=== PATIENT | female | born 1970 | race Caucasian/White ===

== ENCOUNTER 2018-08-12 21:57 | Emergency (ER) | payer BC ==
--- NOTE | 2018-08-12 23:25 | EDM.PDOC ---
<RameshAnaay trevizo - Last Filed: 08/12/18 23:18> ED HPI GENERAL MEDICAL PROBLEM - General Chief Complaint: Diabetic Complaint Stated Complaint: MEDICAL Time Seen by Provider: 08/12/18 22:35 - History of Present Illness INITIAL COMMENTS - FREE TEXT/NARRATIVE: Rocio Clark is a 47 year old female who presents to the E.D. with concerns of uncontrolled diabetes, post op knee surgery on July 23. Since her surgery she notes increased urinary incontinence and feelings of hypoglycemia. She notes that she has not had her A1c checked in a couple of months and has not followed with her PCP in that time as well. She recalls her diabetes being well controlled in the past. Since surgery she has been inactive, except when she attends PT. Today she experienced dizziness and vertigo-like sensations, 12 hours ago. She states having a past history of menieres in which she takes meclizine. Then 6 hours ago she had an episode of shakiness and ate 2 crackers, peanut butter and juice. 10 minutes last the shakiness returned and she ate more peanut butter and juice. After that she experienced urinary incontinence. She also has been having abdominal pain since her surgery. She denied being constipated or having diarrhea. She did mention constipation following surgery and after being on the pain medicine but has not had issues since. She denied infection at the surgical site, fevers, urgency and dysuria. denies pain Pain Score (Numeric/FACES): 0 - Related Data Allergies Allergy/AdvReac Type Severity Reaction Status Date / Time strawberry [[place]] Allergy Hives Verified 08/12/18 22:17 kit diana Allergy Swelling Uncoded 08/12/18 22:17 Home Meds: Home Meds Albuterol [Ventolin HFA] 2 puff INH ASDIRECTED PRN 06/12/18 [History] Diclofenac Sodium 1 dose TOP ASDIRECTED 06/12/18 [History] Lisdexamfetamine [Vyvanse] 20 mg PO DAILY 06/12/18 [History] Lisinopril 40 mg PO DAILY 06/12/18 [History] Simvastatin 80 mg PO BEDTIME 06/12/18 [History] hydroCHLOROthiazide [Hydrochlorothiazide] 12.5 mg PO DAILY 06/12/18 [History] metFORMIN HCl [Metformin HCl ER] 750 mg PO BEDTIME 06/12/18 [History] traZODone HCl [Trazodone HCl] 50 mg PO BEDTIME 06/12/18 [History] Celecoxib 200 mg PO DAILY 08/12/18 [History] Hydrocodone/Acetaminophen [[place] 10-325 Tablet] 1 tab PO ASDIRECTED PRN [History] Meclizine [Antivert] 25 mg PO DAILY 08/12/18 [History] Pantoprazole 20 mg PO DAILY 08/12/18 [History] Sennosides [Senna] 8.6 mg PO BID 08/12/18 [History] Venlafaxine HCl [Venlafaxine ER] 150 mg PO DAILY 08/12/18 [History] Past Medical History HEENT History: Reports: Impaired Vision, Other (See Below) Other HEENT History: [place] Cardiovascular History: Reports: High Cholesterol, Hypertension Respiratory History: Reports: Asthma Gastrointestinal History: Reports: Helicobacter Pylori, Other (See Below) Other Gastrointestinal History: acid reflux Genitourinary History: Reports: Urinary Incontinence Musculoskeletal History: Reports: Arthritis, Fracture Psychiatric History: Reports: Anxiety, Depression, PTSD, Suicide Attempt Endocrine/Metabolic History: Reports: Diabetes, Type II, Obesity/BMI 30+ - Infectious Disease History Infectious Disease History: Reports: Chicken Pox - Past Surgical History Musculoskeletal Surgical History: Reports: Knee Replacement, Other (See Below) Other Musculoskeletal Surgeries/Procedures:: humerous fx repair, right elbow fracture repair. Social & Family History - Tobacco Use Smoking Status *Q: Never Smoker - Caffeine Use Caffeine Use: Reports: Soda - Recreational Drug Use Recreational Drug Use: No ED ROS GENERAL - Review of Systems Constitutional: Denies: Fever, Chills, Malaise HEENT: Reports: Vertigo. Denies: Ear Pain, Eye Discharge GI/Abdominal: Reports: Abdominal Pain. Denies: Constipation, Diarrhea : Reports: Incontinence. Denies: Dysuria, Flank Pain, Frequency, Hematuria Psychiatric: Reports: Anxiety, Other (She notes an increased stress level since her surgery ) ED EXAM GENERAL NO PERIP PULSE - Physical Exam Exam Limited By: No Limitations General Appearance: Alert, WD/WN, No Apparent Distress, Anxious Ears: Normal TMs, Other (cerumen located in right external ear canal) Throat/Mouth: Normal Inspection, Normal Lips, Normal Teeth, Normal Voice Head: Atraumatic, Normocephalic Neck: Supple Respiratory/Chest: No Respiratory Distress, No Accessory Muscle Use GI/Abdominal: Normal Bowel Sounds, Soft, Tender, Other (Tender upon palpation of middle, lower quadrant). No: Rebound, Hernia, Mass Neurological: Alert, Oriented Skin Exam: Warm, Normal Color, No Rash Course - Vital Signs Last Recorded V/S: Last Vital Signs Temp 36.6 C 08/12/18 22:25 Pulse 95 08/12/18 22:25 Resp 16 08/12/18 22:25 BP 149/78 H 08/12/18 22:25 Pulse Ox 96 08/12/18 22:25 - Orders/Labs/Meds Labs: Laboratory Tests 08/12/18 08/12/18 08/12/18 Range/Units 23:15 23:15 23:17 WBC 11.6 H (4.5-11.0) K/uL RBC 4.10 (3.30-5.50) M/uL Hgb 11.8 L D (12.0-15.0) g/dL Hct 37.2 (36.0-48.0) % MCV 91 (80-98) fL MCH 29 (27-31) pg MCHC 32 (32-36) % Plt Count 437 H (150-400) K/uL Neut % (Auto) 56 (36-66) % Lymph % (Auto) 34 (24-44) % [place] % (Auto) 7 H (2-6) % Eos % (Auto) 3 (2-4) % Baso % (Auto) 0 (0-1) % Sodium 140 (140-148) mmol/L Potassium 3.9 (3.6-5.2) mmol/L Chloride 102 (100-108) mmol/L Carbon Dioxide 25 (21-32) mmol/L Anion Gap 12.7 (5.0-14.0) mmol/L BUN 20 H (7-18) mg/dL Creatinine 1.0 (0.6-1.0) mg/dL Est Cr Clr Drug Dosing 65.11 mL/min Estimated GFR (MDRD) 59 L (>60) Glucose 159 H (74-106) mg/dL Calcium 9.7 (8.5-10.1) mg/dL Total Bilirubin 0.2 (0.2-1.0) mg/dL AST 12 L (15-37) U/L ALT 18 (12-78) U/L Alkaline Phosphatase 108 (46-116) U/L Total Protein 7.4 (6.4-8.2) g/dL Albumin 3.3 L (3.4-5.0) g/dL Globulin 4.1 H (2.3-3.5) g/dL Albumin/Globulin Ratio 0.8 L (1.2-2.2) Urine Color Yellow Urine Appearance Clear Urine pH 5.0 (4.5-8.0) Ur Specific [place] 1.010 (1.008-1.030) Urine Protein Negative (NEGATIVE) mg/dL Urine Glucose (UA) Normal (NEGATIVE) mg/dL Urine Ketones Negative (NEGATIVE) mg/dL Urine Occult Blood Negative (NEGATIVE) Urine Nitrite Negative (NEGATIVE) Urine Bilirubin Negative (NEGATIVE) Urine Urobilinogen Normal (NORMAL) mg/dL Ur Leukocyte Esterase Negative (NEGATIVE) Urine RBC 0-5 (0-5) Urine WBC 0-5 (0-5) Ur Epithelial Cells Few Amorphous Sediment Not seen Urine Bacteria Rare Urine Mucus Not seen Departure - Departure Disposition: Home, Self-Care 01 Clinical Impression: Meniere's disease, Depression, Constipation - Discharge Information Instructions: Constipation, Adult, [id number], Dizziness, [id number] Referrals: Molly Holt PA [Primary Care Provider] - Forms: ED Department Discharge Care Plan Goals: increase fiber in the diet. Eat several prunes daily use bran cereal, use GUMMY Fibers 3-4 daily to regulate the stools. continue the Senna. Followup with Patricia Holt. continue with the antivert for the dizziness. MultiVit with iron for the hemoglobin that is low <Nithya Strauss - Last Filed: 08/14/18 07:17> ED ROS GENERAL - Review of Systems Review Of Systems: See Below ED EXAM GENERAL NO PERIP PULSE - Physical Exam Exam: See Below Course - Re-Assessments/Exams Free Text/Narrative Re-Assessment/Exam: 08/12/18 23:54 pt had a bs of 159. Her chems otherwise looked normal. Her urine is clear. 08/13/18 00:15 pt had a borderline hg. She has a history of depression and now she is feeling very confined. She is going to therapy on a regular basis. Departure - Departure Time of Disposition: 00:17 Condition: Fair
== END 2018-08-13 00:28 | disposition home or self-care (01) ==
LOC: JP.ED 21:57
DX: K59.00 Constipation, unspecified (principal); H81.01 Meniere's disease, right ear; F32.9 Major depressive disorder, single episode, unspecified
CPT/HCPCS: 36415; 80053; 81001; 85025; 99284

== ENCOUNTER 2019-11-24 15:45 | Emergency (ER) | payer BC ==
--- NOTE | 2019-11-24 17:19 | EDM.PDOCBH ---
<Juan Pablo Medel - Last Filed: 11/24/19 17:13> ED HPI GENERAL MEDICAL PROBLEM - General Chief Complaint: Behavioral/Psych Stated Complaint: MENTAL HEALTH EVAL Time Seen by Provider: 11/24/19 17:05 Source of Information: Reports: Patient, Family, Provider History Limitations: Reports: No Limitations - History of Present Illness INITIAL COMMENTS - FREE TEXT/NARRATIVE: 49-year-old female with severe longstanding depression, previous suicidal attempt with drug overdose, has had an exacerbation of symptoms over the past few weeks and was sent in by her provider for an evaluation. She wants help, she is very tearful, feels helpless, hopeless, and yesterday was thinking of crashing her car and killing herself. A [id number] has had to move into her house for the last 2 months and is been an extremely stressful situation. Her said she pushes everyone away from her because she does not want to be close. She does not use drugs or drink alcohol. Her is afraid to take her home because he has never seen her this bad, and the patient herself admits she is dangerous to be discharged Onset: Unknown/Unsure Duration: Chronic Associated Symptoms: Reports: No Other Symptoms Bilateral Knee Pain Score (Numeric/FACES): 6 - Related Data Allergies Allergy/AdvReac Type Severity Reaction Status Date / Time diphenhydramine Allergy Itching Verified 11/24/19 19:38 [From Benadryl] strawberry [[place]] Allergy Hives Verified 11/24/19 16:36 kit diana Allergy Swelling Uncoded 11/24/19 16:36 Home Meds: Home Meds Diclofenac Sodium 1 dose TOP ASDIRECTED 06/12/18 [History] Lisdexamfetamine [Vyvanse] 20 mg PO DAILY 06/12/18 [History] Lisinopril 40 mg PO DAILY 06/12/18 [History] Simvastatin 80 mg PO BEDTIME 06/12/18 [History] hydroCHLOROthiazide [Hydrochlorothiazide] 12.5 mg PO DAILY 06/12/18 [History] metFORMIN HCl [Metformin HCl ER] 750 mg PO BEDTIME 06/12/18 [History] traZODone HCl [Trazodone HCl] 50 mg PO BEDTIME 06/12/18 [History] Meclizine [Antivert] 25 mg PO DAILY 08/12/18 [History] Sennosides [Senna] 8.6 mg PO BID 08/12/18 [History] Venlafaxine HCl [Venlafaxine ER] 150 mg PO DAILY 08/12/18 [History] Venlafaxine [Effexor] 150 mg PO DAILY 11/24/19 [History] Past Medical History HEENT History: Reports: Impaired Vision, Other (See Below) Other HEENT History: [place] Cardiovascular History: Reports: High Cholesterol, Hypertension Respiratory History: Reports: Asthma Gastrointestinal History: Reports: Helicobacter Pylori, Other (See Below) Other Gastrointestinal History: acid reflux Genitourinary History: Reports: Urinary Incontinence Musculoskeletal History: Reports: Arthritis, Fracture Psychiatric History: Reports: Anxiety, Depression, PTSD, Suicide Attempt Endocrine/Metabolic History: Reports: Diabetes, Type II, Obesity/BMI 30+ - Infectious Disease History Infectious Disease History: Reports: Chicken Pox - Past Surgical History Musculoskeletal Surgical History: Reports: Knee Replacement, Other (See Below) Other Musculoskeletal Surgeries/Procedures:: humerous fx repair, right elbow fracture repair. Social & Family History - Tobacco Use Smoking Status *Q: Never Smoker - Caffeine Use Caffeine Use: Reports: Soda - Recreational Drug Use Recreational Drug Use: No ED ROS GENERAL - Review of Systems Review Of Systems: See Below Constitutional: Reports: Malaise. Denies: Fever, Chills HEENT: Reports: No Symptoms Respiratory: Denies: Shortness of Breath Cardiovascular: Denies: Chest Pain GI/Abdominal: Denies: Constipation, Diarrhea, Nausea, Vomiting : Reports: No Symptoms Skin: Reports: No Symptoms Neurological: Denies: Headache Psychiatric: Reports: Depression, Other (Bipolar) ED EXAM, BEHAVIORAL HEALTH - Physical Exam Exam: See Below Exam Limited By: No Limitations General Appearance: Alert, No Apparent Distress Eye Exam: Bilateral Eye: Normal Inspection Head: Atraumatic Respiratory/Chest: No Respiratory Distress, Lungs Clear Cardiovascular: No: Regular Rate, Rhythm GI/Abdominal: Soft, Non-Tender Extremities: Other (Well-healed surgical scars over both knees and the right elbow) Neurological: Alert, No Motor/Sensory Deficits, Oriented x 3 Psychiatric: Depressed Mood, Flat Affect, Tearful, Poor Eye Contact Skin Exam: Warm, Dry COURSE, BEHAVIORAL HEALTH COMP - Course Vital Signs: Last Vital Signs Temp 97.7 F 11/24/19 16:40 Pulse 89 06/09/20 19:35 Resp 16 11/24/19 19:35 BP 155/70 H 11/24/19 19:35 Pulse Ox 96 11/24/19 19:35 Orders, Labs, Meds: Active Orders 24 hr Category Date Time Status CULTURE URINE [RM] Stat Lab 11/24/19 18:30 Received Laboratory Tests 11/24/19 11/24/19 11/24/19 Range/Units 17:24 17:24 17:27 WBC 13.3 H (4.5-11.0) K/uL RBC 4.52 (3.30-5.50) M/uL Hgb 12.9 (12.0-15.0) g/dL Hct 40.5 (36.0-48.0) % MCV 90 (80-98) fL MCH 29 (27-31) pg MCHC 32 (32-36) % Plt Count 349 (150-400) K/uL Neut % (Auto) 71 H (36-66) % Lymph % (Auto) 21 L (24-44) % [place] % (Auto) 7 H (2-6) % Eos % (Auto) 1 L (2-4) % Baso % (Auto) 0 (0-1) % Sodium 141 (140-148) mmol/L Potassium 3.6 (3.6-5.2) mmol/L Chloride 103 (100-108) mmol/L Carbon Dioxide 28 (21-32) mmol/L Anion Gap 10.3 (5.0-14.0) mmol/L BUN 16 (7-18) mg/dL Creatinine 1.0 (0.6-1.0) mg/dL Est Cr Clr Drug Dosing 66.18 mL/min Estimated GFR (MDRD) 59 L (>60) Glucose 113 H (74-106) mg/dL Calcium 9.1 (8.5-10.1) mg/dL Total Bilirubin 0.5 D (0.2-1.0) mg/dL AST 19 (15-37) U/L ALT 25 (12-78) U/L Alkaline Phosphatase 84 (46-116) U/L Total Protein 7.9 (6.4-8.2) g/dL Albumin 3.8 (3.4-5.0) g/dL Globulin 4.1 H (2.3-3.5) g/dL Albumin/Globulin Ratio 0.9 L (1.2-2.2) Urine Color Yellow (YELLOW) Urine Appearance Slightly cloudy A (CLEAR) Urine pH 5.5 (5.0-8.0) Ur Specific [place] >= 1.030 (1.008-1.030) Urine Protein 100 H (NEGATIVE) mg/dL Urine Glucose (UA) Negative (NEGATIVE) mg/dL Urine Ketones Negative (NEGATIVE) mg/dL Urine Occult Blood Trace-intact H (NEGATIVE) Urine Nitrite Positive H (NEGATIVE) Urine Bilirubin Negative (NEGATIVE) Urine Urobilinogen 0.2 (0.2-1.0) EU/dL Ur Leukocyte Esterase Trace H (NEGATIVE) Urine RBC Not seen (0-5) Urine WBC 40-50 H (0-5) Ur Epithelial Cells Many Urine Bacteria Many Urine Opiates Screen (NEGATIVE) Ur Oxycodone Screen (NEGATIVE) Urine Methadone Screen (NEGATIVE) Ur Propoxyphene Screen (NEGATIVE) Ur Barbiturates Screen (NEGATIVE) Ur Tricyclics Screen (NEGATIVE) Ur Phencyclidine Scrn (NEGATIVE) Ur Amphetamine Screen (NEGATIVE) U Methamphetamines Scrn (NEGATIVE) Urine MDMA Screen (NEGATIVE) U Benzodiazepines Scrn (NEGATIVE) U Cocaine Metab Screen (NEGATIVE) U Marijuana (THC) Screen (NEGATIVE) Ethyl Alcohol mg/dL 11/24/19 11/24/19 Range/Units 17:27 18:27 WBC (4.5-11.0) K/uL RBC (3.30-5.50) M/uL Hgb (12.0-15.0) g/dL Hct (36.0-48.0) % MCV (80-98) fL MCH (27-31) pg MCHC (32-36) % Plt Count (150-400) K/uL Neut % (Auto) (36-66) % Lymph % (Auto) (24-44) % [place] % (Auto) (2-6) % Eos % (Auto) (2-4) % Baso % (Auto) (0-1) % Sodium (140-148) mmol/L Potassium (3.6-5.2) mmol/L Chloride (100-108) mmol/L Carbon Dioxide (21-32) mmol/L Anion Gap (5.0-14.0) mmol/L BUN (7-18) mg/dL Creatinine (0.6-1.0) mg/dL Est Cr Clr Drug Dosing mL/min Estimated GFR (MDRD) (>60) Glucose (74-106) mg/dL Calcium (8.5-10.1) mg/dL Total Bilirubin (0.2-1.0) mg/dL AST (15-37) U/L ALT (12-78) U/L Alkaline Phosphatase (46-116) U/L Total Protein (6.4-8.2) g/dL Albumin (3.4-5.0) g/dL Globulin (2.3-3.5) g/dL Albumin/Globulin Ratio (1.2-2.2) Urine Color (YELLOW) Urine Appearance (CLEAR) Urine pH (5.0-8.0) Ur Specific [place] (1.008-1.030) Urine Protein (NEGATIVE) mg/dL Urine Glucose (UA) (NEGATIVE) mg/dL Urine Ketones (NEGATIVE) mg/dL Urine Occult Blood (NEGATIVE) Urine Nitrite (NEGATIVE) Urine Bilirubin (NEGATIVE) Urine Urobilinogen (0.2-1.0) EU/dL Ur Leukocyte Esterase (NEGATIVE) Urine RBC (0-5) Urine WBC (0-5) Ur Epithelial Cells Urine Bacteria Urine Opiates Screen Negative (NEGATIVE) Ur Oxycodone Screen Negative (NEGATIVE) Urine Methadone Screen Negative (NEGATIVE) Ur Propoxyphene Screen Negative (NEGATIVE) Ur Barbiturates Screen Negative (NEGATIVE) Ur Tricyclics Screen Negative (NEGATIVE) Ur Phencyclidine Scrn Negative (NEGATIVE) Ur Amphetamine Screen Negative (NEGATIVE) U Methamphetamines Scrn Negative (NEGATIVE) Urine MDMA Screen Negative (NEGATIVE) U Benzodiazepines Scrn Negative (NEGATIVE) U Cocaine Metab Screen Negative (NEGATIVE) U Marijuana (THC) Screen Negative (NEGATIVE) Ethyl Alcohol < 3 mg/dL Medications Discontinued Medications Generic Name Dose Route Start Last Admin Trade Name Freq PRN Reason Stop Dose Admin Diphenhydramine HCl 50 mg 11/24/19 19:14 11/24/19 19:37 Benadryl IM 11/24/19 19:15 Not Given ONETIME ONE Haloperidol Lactate 5 mg 11/24/19 19:14 11/24/19 19:29 Haldol IM 11/24/19 19:15 5 mg ONETIME ONE Administration Lorazepam 2 mg 11/24/19 19:14 11/24/19 19:28 Ativan IM 11/24/19 19:15 2 mg ONETIME ONE Administration Nitrofurantoin Macrocrystals 100 mg 11/24/19 18:54 11/24/19 19:32 Macrobid PO 11/24/19 18:55 100 mg ONETIME ONE Administration Re-Assessment/Re-Exam: Patient clearly needs inpatient stabilization and is a high risk for suicide. CBC CMP UA and urine drug screen were obtained. She is not sexually active, and does not do street drugs or drink alcohol. Departure - Departure Disposition: DC/Tfer to Psych Hosp/Unit 65 Clinical Impression: Suicidal ideation - Discharge Information Referrals: Molly Holt PA [Primary Care Provider] - Forms: ED Department Discharge Sepsis Event Note (ED) - Evaluation Sepsis Screening Result: No Definite Risk - Focused Exam Vital Signs: Vital Signs Temp Pulse Resp BP Pulse Ox 11/24/19 19:35 89 16 155/70 H 96 11/24/19 16:40 97.7 F 101 H 16 195/99 H 96 11/24/19 16:26 97.7 F 101 H 16 195/99 H 96 <OfficerGenaro - Last Filed: 11/24/19 20:29> COURSE, BEHAVIORAL HEALTH COMP - Course Re-Assessment/Re-Exam: Became very tearful with outbursts demanding to go home however she admitted earlier in the day that she does want to harm herself did have a plan, asked for something to relax herself [facility] has asked for 72-hour hold placement prior to transport Departure - Departure Time of Disposition: 20:29 Condition: Fair - Assessment/Plan Plan: Assessment Acuity = acute Site and laterality = suicidal ideation Etiology = unknown Manifestations = distraught anxiety Location of injury = Home Lab values = WBC elevated 13.3 consistent leukocytosis urinalysis reveals positive nitrates, 40-50 WBCs and EtOH of negative urine drug screen is negative urine culture is pending Plan Did have acceptance gain from [facility] she will be transferred via EMS services This note was dictated using [employer] voice recognition software please call with any questions on syntax or grammar.
[2019-11-24] MEDS ORDERED: Nitrofurantoin Monohydrate/Macrocrystalline 100 MG Cap PO ONE (18:54)
[2019-11-24] MEDS ORDERED: LORazepam 2 MG/ML SDV IM ONE (19:14)
[2019-11-24] MEDS ORDERED: diphenhydrAMINE 50 MG/ML SDV IM ONE (19:14)
[2019-11-24] MEDS ORDERED: Haloperidol Lactate 5 MG/ML SDV IM ONE (19:14)
== END 2019-11-24 21:06 ==
LOC: JP.ED 15:45
DX: R45.851 Suicidal ideations (principal); E78.00 Pure hypercholesterolemia, unspecified; I10 Essential (primary) hypertension; J45.909 Unspecified asthma, uncomplicated; F41.9 Anxiety disorder, unspecified; F32.9 Major depressive disorder, single episode, unspecified; E11.9 Type 2 diabetes mellitus without complications; E66.9 Obesity, unspecified; Z68.41 Body mass index [BMI] 40.0-44.9, adult; Z79.84 Long term (current) use of oral hypoglycemic drugs; Z79.899 Other long term (current) drug therapy; Z88.8 Allergy status to other drugs, medicaments and biological substances; Z91.018 Allergy to other foods
CPT/HCPCS: 36415; 80053; 80305; 80307; 81001; 85025; 87086; 87088; 87186; 96372; 99285; A9270; J1630; J2060

== ENCOUNTER 2022-04-19 09:48 | Emergency (ER) | payer BC ==
[2022-04-19] MEDS ORDERED: Ketorolac 30 MG/ML SDV IM ONE (10:55)
== END 2022-04-19 11:21 | disposition home or self-care (01) ==
LOC: JP.ED 09:48
DX: S20.229A Contusion of unspecified back wall of thorax, initial encounter (principal); R55 Syncope and collapse; E78.00 Pure hypercholesterolemia, unspecified; I10 Essential (primary) hypertension; E11.9 Type 2 diabetes mellitus without complications; E66.9 Obesity, unspecified; Z68.41 Body mass index [BMI] 40.0-44.9, adult; Z88.8 Allergy status to other drugs, medicaments and biological substances; Z91.018 Allergy to other foods; Z79.899 Other long term (current) drug therapy; Z79.84 Long term (current) use of oral hypoglycemic drugs; X50.0XXA Overexertion from strenuous movement or load, initial encounter
CPT/HCPCS: 96372; 99283; J1885

== ENCOUNTER 2023-12-18 10:05 | Emergency (ER) | payer BC ==
[2023-12-18 11:06] LABS: BASOPHILS ABSOLUTE AUTO 0.04 K/uL (0.00-0.10); BASOPHILS PERCENT AUTO 0.5 % (0.1-1.3); EOSINOPHILS ABSOLUTE AUTO 0.27 K/uL (0.00-0.40); EOSINOPHILS PERCENT AUTO 3.3 % (0.0-5.4); HEMATOCRIT 37.4 % (34.3-46.0); HEMOGLOBIN 12.7 g/dL (11.2-15.5); IMMATURE GRAN PERCENT AUTO 0.2 % (0.0-0.7); LYMPHOCYTES ABSOLUTE AUTO 2.34 K/uL (0.8-3.3); LYMPHOCYTES PERCENT AUTO 28.3 % (11.4-47.7); MEAN CORPUSCULAR HEMOGLOBIN 28.7 pg (31.6-35.5); MEAN CORPUSCULAR VOLUME 84.6 fL (81.4-99.0); MONOCYTES ABSOLUTE AUTO 0.66 K/uL (0.20-0.90); NEUTROPHILS ABSOLUTE AUTO 4.94 K/uL (1.0-7.6); NEUTROPHILS PERCENT AUTO 59.7 % (40.0-78.1); PLATELET COUNT,PLT 310 K/uL (130-375); RED BLOOD CELL COUNT 4.42 M/uL (3.77-5.24); WHITE BLOOD CELL COUNT,WBC 8.3 K/uL (3.2-11.0)
[2023-12-18 11:13] LABS: IMMATURE GRAN ABSOLUTE AUTO 0.02 K/uL (0.00-0.23)
[2023-12-18 11:22] LABS: INR 1.1; PROTHROMBIN TIME 11.6 sec (9.2-10.6); PTT,PARTIAL THROMBOPLSTIN TIME 26.4 sec (21.8-27.3)
[2023-12-18 11:25] LABS: ANION GAP 14.7 mmol/L (5.0-14.0); CALCIUM 9.4 mg/dL (8.5-10.1); CREATININE 0.9 mg/dL (0.6-1.0); EST CRCL DRUG DOSING (CG) 67.67 mL/min; POTASSIUM,K 3.7 mmol/L (3.6-5.2)
[2023-12-18] MEDS: Ketorolac 30 MG/ML SDV IVPUSH ONE (11:53)
[2023-12-18] MEDS: Sodium Chloride 0.9% 1,000 ML IV SCH (11:55)
[2023-12-18] MEDS: Promethazine 12.5 MG in Sodium Chloride 0.9% 50 ML IV ONE (12:29)
[2023-12-18 12:44] LABS: APPEARANCE,URINE CLEAR (CLEAR); BILIRUBIN,URINE NEGATIVE (NEGATIVE); COLOR,URINE YELLOW (YELLOW); GLUCOSE,URINE NEGATIVE (NEGATIVE); KETONES,URINE NEGATIVE (NEGATIVE); LEUKOCYTE ESTERASE,URINE NEGATIVE (NEGATIVE); NITRITE,URINE NEGATIVE (NEGATIVE); OCCULT BLOOD,URINE NEGATIVE (NEGATIVE); PROTEIN,URINE NEGATIVE (NEGATIVE); UROBILINOGEN,URINE 0.2 EU/dL (0.2-1.0)
[2023-12-18 12:50] LABS: AMORPHOUS SEDIMENT,URINE FEW; BACTERIA,URINE MODERATE; EPITHELIAL CELLS,URINE MODERATE; MUCUS,URINE NOT SEEN; RBC,URINE NOT SEEN (0-5); WBC,URINE 0-5 (0-5)
== END 2023-12-18 14:17 | disposition home or self-care (01) ==
LOC: JP.ED 10:05
DX: G43.119 Migraine with aura, intractable, without status migrainosus (principal); I10 Essential (primary) hypertension; E78.00 Pure hypercholesterolemia, unspecified; E11.9 Type 2 diabetes mellitus without complications; E66.9 Obesity, unspecified; Z79.899 Other long term (current) drug therapy; Z91.018 Allergy to other foods; Z88.8 Allergy status to other drugs, medicaments and biological substances; Z68.42 Body mass index [BMI] 45.0-49.9, adult
CPT/HCPCS: 36415; 70450; 80048; 81001; 81025; 84484; 85025; 85610; 85730; 93005; 96361; 96365; 96375; 99284; J1885; J2550; J3490; J7030; 82947

== ENCOUNTER 2024-01-24 06:27 | Day surgery (SDC) | payer BC ==
[2024-01-24] MEDS ORDERED: Lidocaine 1% 2 ML ONE (07:23)
[2024-01-24] MEDS ORDERED: fentaNYL 250 MCG/5 ML SDV ONE ×2 (07:32→08:31)
[2024-01-24] MEDS ORDERED: Glycopyrrolate 0.2 MG/ML 5 ML MDV ONE (07:34)
[2024-01-24] MEDS ORDERED: Ondansetron 4 MG/2 ML SDV ONE (07:34)
[2024-01-24] MEDS ORDERED: Neostigmine Methylsulfate 10 MG/10 ML MDV ONE (07:34)
[2024-01-24] MEDS ORDERED: Propofol 200 MG/20 ML SDV ONE (07:34)
[2024-01-24] MEDS ORDERED: Rocuronium 50 MG/5 ML Vial ONE (07:34)
[2024-01-24] MEDS ORDERED: Scopalamine 1mg/3day Transdermal Patch ONE (07:34)
[2024-01-24] MEDS ORDERED: Dexamethasone 4 MG/ML SDV ONE (07:34)
[2024-01-24] MEDS ORDERED: Succinylcholine 200 MG/10 ML MDV ONE (07:34)
[2024-01-24] MEDS: Sodium Chloride 0.9% 1,000 ML IV SCH (07:41)
[2024-01-24] MEDS: Indocyanine Green 25 MG SDV IV ONE (07:42)
[2024-01-24] MEDS: ceFAZolin 2 GM in Premix Bag 1 BAG IV ONE (07:45)
[2024-01-24] MEDS: metroNIDAZOLE/Normal Saline 500 MG in Premix Bag 1 BAG IV ONE (08:00)
[2024-01-24] MEDS: Bupivacaine 0.5% 50 ML MDV ONE (08:50)
[2024-01-24] MEDS: Lidocaine 1% with EPINEPHrine 1:100,000 50 ML MDV ONE (08:50)
[2024-01-24] MEDS: hydrOXYzine HCL 100 MG/2 ML SDV IM ONE (10:19)
[2024-01-24] MEDS: fentaNYL 50 MCG/ML SDV IVPUSH ONE ×2 (10:27→11:33)
[2024-01-24] MEDS ORDERED: Naloxone 0.4 MG/ML SDV IVPUSH PRN (11:20)
[2024-01-24] MEDS: Albuterol/Ipratropium 3.0-0.5 MG/3 ML Neb Soln NEB ONE (11:35)
[2024-01-24] MEDS: Acetaminophen 1,000 MG in Premix Bag 1 BAG IV ONE (11:35)
[2024-01-24] MEDS: Ondansetron 4 MG/2 ML SDV IVPUSH ONE (15:31)
[2024-01-24] MEDS ORDERED: Morphine 2 MG/ML SYRINGE IVPUSH PRN (16:35)
[2024-01-24] MEDS ORDERED: Acetaminophen/oxyCODONE 325-5 MG Tab PO PRN (16:36)
== END 2024-01-24 18:49 | disposition home or self-care (01) ==
LOC: JP.SDS 06:27 → JP.MS 15:45 → JP.SDS 18:49
PROVIDERS: ATTEND Surgery
DX: K81.1 Chronic cholecystitis (principal); I10 Essential (primary) hypertension; F41.9 Anxiety disorder, unspecified; F32.A Depression, unspecified; E11.9 Type 2 diabetes mellitus without complications; E66.9 Obesity, unspecified
CPT/HCPCS: 00790; 36415; 47562; 71045; 82947; 84484; 93005; 94640; A9270; J0131; J0171; J0330; J0665; J0690; J1100; J1596; J1836; J2405; J2704; J2710; J2795; J3010; J3410; J3490; J7030; J7620

== ENCOUNTER 2024-07-08 17:37 | Emergency (ER) | payer BC ==
[2024-07-08] MEDS: Diphtheria,Pertussis(Acell),Tetanus Vaccine 0.5 ML Syringe IM ONE (18:34)
== END 2024-07-08 18:53 | disposition home or self-care (01) ==
LOC: JP.ED 17:37
DX: S01.81XA Laceration without foreign body of other part of head, initial encounter (principal); I10 Essential (primary) hypertension; J45.909 Unspecified asthma, uncomplicated; E78.00 Pure hypercholesterolemia, unspecified; E11.9 Type 2 diabetes mellitus without complications; E66.9 Obesity, unspecified; Z68.41 Body mass index [BMI] 40.0-44.9, adult; Z88.8 Allergy status to other drugs, medicaments and biological substances; Z91.018 Allergy to other foods; Z79.899 Other long term (current) drug therapy; W22.8XXA Striking against or struck by other objects, initial encounter; Z23 Encounter for immunization
CPT/HCPCS: 12011; 90471; 90715; 99282-25